=== PATIENT | male | born 1980 | race Caucasian/White ===

== ENCOUNTER 2018-02-28 10:43 | Emergency (ER) | payer SELFPAY ==
[2018-02-28 11:56] VITALS: BP 145/82
[2018-02-28] MEDS ORDERED: Ketorolac INJ* 30 MG/ML 1 ML VIAL IM ONE (12:20)
[2018-02-28] MEDS ORDERED: LORazepam TAB(*) 1 MG PO ONE (12:21)
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
--- NOTE | 2018-02-28 13:17 | RAD ---
Indication: Right hip pain. 2 views of the right hip and an AP view of the pelvis demonstrates no fracture. Pelvic ring is intact. IMPRESSION: Unremarkable right hip and pelvis.
--- NOTE | 2018-02-28 13:18 | RAD ---
Indication: Back pain. 5 views of lumbar spine are reviewed. The study is limited due to patient's body habitus. Vertebral bodies appear normal in height. There is scoliosis of the lumbar spine centered at L1-L2 with convexity towards the left. The upper lumbar vertebra are difficult to visualize. IMPRESSION: Levoscoliosis centered at L1-L2. The study is limited due to body habitus.
== END 2018-02-28 13:56 | disposition home or self-care (01) ==
LOC: UCCORT 10:43
DX: M54.5 Low back pain (principal); F17.210 Nicotine dependence, cigarettes, uncomplicated
CPT/HCPCS: 72110; 96372; 99202; A9270-GY; G0463; J1885